=== PATIENT | male | born 1945 | race Caucasian/White ===

== ENCOUNTER 2020-08-25 11:06 | Inpatient (IN) | payer OTHER ==
--- NOTE | 2020-08-25 11:35 | EDM.PDOC ---
ED HPI GENERAL MEDICAL PROBLEM - General Chief Complaint: Respiratory Problem Stated Complaint: CALL IN. Time Seen by Provider: 08/25/20 11:20 Source of Information: Reports: Patient, EMS History Limitations: Reports: No Limitations - History of Present Illness INITIAL COMMENTS - FREE TEXT/NARRATIVE: This 74 yo male patient was brought to the ED by [facility] due to shortness of jimenez th. The patient reports he was diagnosed with COVID 8 days ago and has been feeling short of breath. The patient reports his called for the ambulance today due to increased concern. The patient does have a history of Parkinson's. Onset: Gradual Duration: Day(s):, Constant Location: Reports: Chest Quality: Reports: Other Severity: Moderate Improves with: Reports: None Worsens with: Reports: None Context: Reports: Other Associated Symptoms: Reports: Shortness of Breath - Related Data Allergies Allergy/AdvReac Type Severity Reaction Status Date / Time No Known Allergies Allergy Verified 08/25/20 11:21 Home Meds: Home Meds Amoxicillin 250 mg PO DAILY 08/25/20 [History] Benazepril [Lotensin] 20 mg PO BID 08/25/20 [History] Calcium Carbonate [Tums] 500 mg PO DAILY PRN 08/25/20 [History] Carbidopa/Levodopa [Carbidopa-Levo 25-250 MG ODT] 1 tab PO QID 08/25/20 [History] Carbidopa/Levodopa [Carbidopa-Levo ER 50-200] 1 tab PO QPM 08/25/20 [History] Citalopram Hydrobromide [Celexa] 10 mg PO DAILY 08/25/20 [History] Magnesium 250 mg PO DAILY 08/25/20 [History] Melatonin/Pyridoxine HCl (B6) [Melatonin 3 mg Tablet] 3 mg PO DAILY 08/25/20 [History] Multivitamin [Multivitamins] 1 each PO DAILY 08/25/20 [History] Simvastatin 20 mg PO DAILY 08/25/20 [History] amLODIPine Besylate [Amlodipine Besylate] 10 mg PO DAILY 08/25/20 [History] methylPREDNISolone [Medrol Dose Pack] 4 mg PO DAILY 08/25/20 [History] Past Medical History HEENT History: Reports: None Cardiovascular History: Reports: High Cholesterol, Hypertension Respiratory History: Reports: None Gastrointestinal History: Reports: None Genitourinary History: Reports: None Musculoskeletal History: Reports: None Neurological History: Reports: Parkinson's Psychiatric History: Reports: None Endocrine/Metabolic History: Reports: None Hematologic History: Reports: None Immunologic History: Reports: None Oncologic (Cancer) History: Reports: None Dermatologic History: Reports: None - Infectious Disease History Infectious Disease History: Reports: None - Past Surgical History Head Surgeries/Procedures: Reports: None Social & Family History - Family History Family Medical History: No Pertinent Family History - Tobacco Use Tobacco Use Status *Q: Former Tobacco User Used Tobacco, but Quit: Yes Month/Year Tobacco Last Used: 00 - Caffeine Use Caffeine Use: Reports: Coffee - Recreational Drug Use Recreational Drug Use: No ED ROS GENERAL - Review of Systems Review Of Systems: Comprehensive ROS is negative, except as noted in HPI. ED EXAM, GENERAL - Physical Exam Exam: See Below Exam Limited By: No Limitations General Appearance: Alert, WD/WN, Moderate Distress Eye Exam: Bilateral Eye: EOMI, Normal Inspection, PERRL Ears: Normal External Exam, Normal Canal, Hearing Grossly Normal, Normal TMs Nose: Normal Inspection, Normal Mucosa, No Blood Throat/Mouth: Normal Inspection, Normal Lips, Normal Teeth, Normal Gums, Normal Oropharynx, Normal Voice, No Airway Compromise Head: Atraumatic, Normocephalic Neck: Normal Inspection, Supple, Non-Tender, Full Range of Motion Respiratory/Chest: Decreased Breath Sounds (throughout) Cardiovascular: Normal Peripheral Pulses, Regular Rate, Rhythm, No Edema, No Gallop, No JVD, No Murmur, No Rub GI/Abdominal: Normal Bowel Sounds, Soft, Non-Tender, No Organomegaly, No Distention, No Abnormal Bruit, No Mass (Male) Exam: Deferred Rectal (Males) Exam: Deferred Back Exam: Normal Inspection, Full Range of Motion, NT Extremities: Normal Inspection, Normal Range of Motion, Non-Tender, Normal Capillary Refill, No Pedal Edema Neurological: Alert, Oriented, CN II-XII Intact Psychiatric: Normal Affect, Normal Mood Skin Exam: Warm, Dry, Intact, Normal Color, No Rash Lymphatic: No Adenopathy Course - Vital Signs Last Recorded V/S: Last Vital Signs Temp 36.6 C 08/25/20 10:58 Pulse 77 08/25/20 10:58 Resp 18 08/25/20 10:58 BP 121/69 08/25/20 10:58 Pulse Ox 91 L 08/25/20 10:58 - Orders/Labs/Meds Orders: Active Orders 24 hr Category Date Time Status Admission Diagnosis [ADT] Urgent ADT 08/25/20 14:09 Ordered Patient Status [ADT] Routine ADT 08/25/20 14:09 Ordered EKG Documentation Completion [RC] STAT Care 08/25/20 11:28 Active Chest w Cont [CT] Urgent Exams 08/25/20 12:19 Ordered CULTURE BLOOD [BC] Stat Lab 08/25/20 11:40 Received Labs: Laboratory Tests 08/25/20 08/25/20 08/25/20 Range/Units 11:40 11:40 11:40 WBC 3.1 L (5.0-10.0) 10^3/uL RBC 4.24 L (4.6-6.2) 10^6/uL Hgb 14.3 (14.0-18.0) g/dL Hct 40.8 (40.0-54.0) % MCV 96.2 (80-100) fL MCH 33.7 (27.0-34.0) pg MCHC 35.0 (33.0-35.0) g/dL Plt Count 127 L (150-450) 10^3/uL Neut % (Auto) 79.8 H (42.2-75.2) % Lymph % (Auto) 10.6 L (20.5-50.1) % [place] % (Auto) 9.3 H (2-8) % Eos % (Auto) 0.0 L (1.0-3.0) % Baso % (Auto) 0.3 (0.0-1.0) % D-Dimer, Quantitative 1680 H (0-400) ng/mL Sodium 136 (136-145) mmol/L Potassium 4.3 (3.5-5.1) mmol/L Chloride 102 (98-107) mmol/L Carbon Dioxide 24 (21-32) mmol/L Anion Gap 14.3 H (7-13) mEq/L BUN 19 H (7-18) mg/dL Creatinine 0.90 (0.70-1.30) mg/dL Est Cr Clr Drug Dosing 74.19 mL/min Estimated GFR (MDRD) > 60 BUN/Creatinine Ratio 21.1 (No establ ref range) Glucose 112 H (74-99) mg/dL Lactic Acid (0.4-2.0) mmol/L Calcium 8.2 L (8.5-10.1) mg/dL Total Bilirubin 0.6 (0.2-1.0) mg/dL AST 72 H (15-37) U/L ALT 40 (16-63) U/L Alkaline Phosphatase 96 (46-116) U/L Troponin I < 0.017 (0.000-0.056) ng/mL C-Reactive Protein 5.1 H (0.0-0.9) mg/dL Total Protein 6.7 (6.4-8.2) g/dL Albumin 2.8 L (3.4-5.0) g/dL Globulin 3.9 Albumin/Globulin Ratio 0.72 Urine Color (YELLOW) Urine Appearance (CLEAR) Urine pH (5.0-9.0) Ur Specific [place] (1.005-1.030) Urine Protein (NEGATIVE) Urine Glucose (UA) (NEGATIVE) Urine Ketones (NEGATIVE) Urine Occult Blood (NEGATIVE) Urine Nitrite (NEGATIVE) Urine Bilirubin (NEGATIVE) Urine Urobilinogen (0.2-1.0) mg/dL Ur Leukocyte Esterase (NEGATIVE) 08/25/20 08/25/20 Range/Units 11:40 11:50 WBC (5.0-10.0) 10^3/uL RBC (4.6-6.2) 10^6/uL Hgb (14.0-18.0) g/dL Hct (40.0-54.0) % MCV (80-100) fL MCH (27.0-34.0) pg MCHC (33.0-35.0) g/dL Plt Count (150-450) 10^3/uL Neut % (Auto) (42.2-75.2) % Lymph % (Auto) (20.5-50.1) % [place] % (Auto) (2-8) % Eos % (Auto) (1.0-3.0) % Baso % (Auto) (0.0-1.0) % D-Dimer, Quantitative (0-400) ng/mL Sodium (136-145) mmol/L Potassium (3.5-5.1) mmol/L Chloride (98-107) mmol/L Carbon Dioxide (21-32) mmol/L Anion Gap (7-13) mEq/L BUN (7-18) mg/dL Creatinine (0.70-1.30) mg/dL Est Cr Clr Drug Dosing mL/min Estimated GFR (MDRD) BUN/Creatinine Ratio (No establ ref range) Glucose (74-99) mg/dL Lactic Acid 1.3 (0.4-2.0) mmol/L Calcium (8.5-10.1) mg/dL Total Bilirubin (0.2-1.0) mg/dL AST (15-37) U/L ALT (16-63) U/L Alkaline Phosphatase (46-116) U/L Troponin I (0.000-0.056) ng/mL C-Reactive Protein (0.0-0.9) mg/dL Total Protein (6.4-8.2) g/dL Albumin (3.4-5.0) g/dL Globulin Albumin/Globulin Ratio Urine Color Yellow (YELLOW) Urine Appearance Clear (CLEAR) Urine pH 6.0 (5.0-9.0) Ur Specific [place] 1.020 (1.005-1.030) Urine Protein Negative (NEGATIVE) Urine Glucose (UA) Negative (NEGATIVE) Urine Ketones Negative (NEGATIVE) Urine Occult Blood Negative (NEGATIVE) Urine Nitrite Negative (NEGATIVE) Urine Bilirubin Negative (NEGATIVE) Urine Urobilinogen 0.2 (0.2-1.0) mg/dL Ur Leukocyte Esterase Negative (NEGATIVE) Meds: Medications Discontinued Medications Generic Name Dose Route Start Last Admin Trade Name Freq PRN Reason Stop Dose Admin Iopamidol 100 ml 08/25/20 12:19 08/25/20 12:49 Isovue-370 (76%) IVPUSH 08/25/20 12:20 70 ml ONETIME ONE Administration Departure - Departure Time of Disposition: 14:12 Disposition: Admitted As Inpatient 68 Condition: Poor Clinical Impression: COVID-19, Hypoxemia - Discharge Information *PRESCRIPTION DRUG MONITORING PROGRAM REVIEWED*: Not Applicable *COPY OF PRESCRIPTION DRUG MONITORING REPORT IN PATIENT [place]: Not Applicable Care Plan Goals: Reviewed the patient's examination, lab and CT results with Dr. Chin. Dr. Chin accepted the patient for continued evaluation and management as an inpatient at [facility]. Sepsis Event Note (ED) - Evaluation Sepsis Screening Result: No Definite Risk - Focused Exam Vital Signs: Vital Signs Temp Pulse Resp BP Pulse Ox 08/25/20 10:58 36.6 C 77 18 121/69 91 L - My Orders Last 24 Hours: My Active Orders 08/25/20 11:28 EKG Documentation Completion [RC] STAT 08/25/20 11:40 CULTURE BLOOD [BC] Stat 08/25/20 12:19 Chest w Cont [CT] Urgent 08/25/20 14:09 Admission Diagnosis [ADT] Urgent Patient Status [ADT] Routine - Assessment/Plan Last 24 Hours: My Active Orders 08/25/20 11:28 EKG Documentation Completion [RC] STAT 08/25/20 11:40 CULTURE BLOOD [BC] Stat 08/25/20 12:19 Chest w Cont [CT] Urgent 08/25/20 14:09 Admission Diagnosis [ADT] Urgent Patient Status [ADT] Routine
[2020-08-25 12:15] LABS: ANION GAP 14.3 mEq/L (7-13); CHLORIDE,CL 102 mmol/L (98-107); SODIUM,NA 136 mmol/L (136-145)
[2020-08-25] MEDS ORDERED: Iopamidol 755 Mg/ML 100 ML Bottle IVPUSH ONE (12:19)
[2020-08-25] MEDS ORDERED: Acetaminophen 325 MG Tab PO PRN (14:48)
[2020-08-25] MEDS ORDERED: Docusate Sodium 100 MG Cap PO PRN (14:48)
[2020-08-25] MEDS ORDERED: Calcium Carbonate 500 MG Tab.Chew PO PRN (14:53)
[2020-08-25] MEDS ORDERED: cefTRIAXone 1,000 MG in Sodium Chloride 0.9% 50 ML IV SCH (15:00)
[2020-08-25] MEDS: Carbidopa/Levodopa 25-250 MG Tab PO SCH ×3 (16:02→23:11)
[2020-08-25] MEDS: Sodium Chloride 0.9% 1,000 ML IV SCH (16:03)
[2020-08-25] MEDS: cefTRIAXone 1 GM in Sodium Chloride 0.9% 50 ML IV SCH (16:04)
[2020-08-25] MEDS: Dexamethasone 4 MG/ML SDV IVPUSH SCH (16:05)
[2020-08-25] MEDS: Aspirin 81 MG Tab.EC PO SCH (16:05)
[2020-08-25] MEDS: Azithromycin 500 MG in Sodium Chloride 0.9% 250 ML IV SCH (16:22)
[2020-08-25] MEDS: Sodium Chloride 0.9% 10 ML Syringe FLUSH SCH (19:13)
--- NOTE | 2020-08-25 19:16 | HP ---
CHIEF COMPLAINT: Shortness of breath. HISTORY OF PRESENT ILLNESS: The patient is a 74-year-old gentleman who was admitted to the emergency room because the patient was diagnosed with COVID 8 days ago and has been feeling short of breath and that was also accompanied by fatigue and low-grade fever. Yesterday, the patient was still not getting better and so called the clinic and he was started on Medrol Dosepak as well as Zithromax, but the patient was not getting better and the patient's saturation was dipping down to 88% with mild activity, and because of this called the ambulance, and the patient was brought into the emergency room. In the emergency room, the patient was noted to be hypoxemic, especially with mild activity. The patient had a chest x-ray and this showed COVID pneumonia. Because of the above, the patient was then admitted for further management. PAST MEDICAL HISTORY: Remarkable for hypertension, Parkinson disease, and dyslipidemia. SOCIAL HISTORY: The patient is . Lives with his . A former smoker. No alcohol abuse. HOME MEDICATIONS: Benazepril 20 mg b.i.d., Tums daily p.r.n., carbidopa/levodopa 25/250 one tablet q.i.d. and carbidopa levodopa ER 50/200 one tablet q.p.m., Celexa 10 mg daily, magnesium 250 mg daily, melatonin, multivitamins, simvastatin 20 mg daily, and amlodipine 10 mg daily. ALLERGIES: No known drug allergies. REVIEW OF SYSTEMS: Denies any headache, chest pain, orthopnea, PND, abdominal pain, diarrhea, or any pedal edema. PHYSICAL EXAMINATION: General: The patient is alert and oriented in [id number] distress. Vital Signs: Blood pressure is 121/69, pulse of 77, respirations of 18, pulse oximeter is 91% resting on room air, but drops to 86% to 88% with mild-to- moderate activity. SHEENT: Normocephalic. There are pink palpebral conjunctivae. Sclerae anicteric. No JVD. No lymphadenopathy. Heart: Regular rate and rhythm. Normal S1 and S2. No gallops. No rubs. Lungs: Have diminished breath sounds in both bases, but no significant crackles, no wheezing. Abdomen: Soft, nontender. Bowel sounds positive. Extremities: Negative for any pedal edema. No calf tenderness. LABORATORY WORKUP: CBC: WBC 3.1, hemoglobin is 14.3, hematocrit is 40.8, platelets are 127. D-dimer is 1680. Comp panel: Calcium is 8.2, glucose is 112. The rest of the panel unremarkable. Troponin is less than 0.017. C- reactive protein is 5.1, which is elevated. CAT scan of the chest was discussed with the ER provider. Has COVID pneumonia. ADMITTING DIAGNOSES: 1. Coronavirus disease pneumonia. 2. Hypoxemia. 3. Parkinson disease. 4. Hypertension. 5. Dyslipidemia. TREATMENT PLAN: The patient is going to be admitted to acute care, COVID isolation unit. He will be empirically started on IV dexamethasone, IV antibiotics with ceftriaxone and azithromycin, and I have also discussed with the patient regarding remdesivir and he is agreeable to this, and we will also put him on DVT prophylaxis and the rest of the management as necessary. The patient is a full code as discussed with the patient. I spoke with the patient and provided information about remdesivir treatment as being under emergency use authorization and not fully FDA approved or reviewed. I discussed potential side effects including liver abnormalities and also discussed other potential treatment options that are currently not FDA approved to treat COVID-19. The patient gives permission for remdesivir. [facility] /[id number] RAFAEL
--- NOTE | 2020-08-25 20:54 | CT ---
EXAMINATION: Chest w Cont SEX: Male AGE: 74 years CLINICAL HISTORY: 74-year-old hypertensive male, short of breath. Serum D dimer 1600. Covid positive. Scan technique: Volume acquisition of data emergency CT scan of the chest obtained during the intravenous administration 70 cc nonionic Isovue 370 contrast at 5 cc/s via injector while patient was lying supine on the Siemens multislice scanner [place], [place]. All data archived in the PACS system for storage, reformatting axial/sagittal/coronal planes and study (lung/mediastinal/bone windows). Respiratory motion artifacts. No comparison chest exams immediately available. Interpretation: Abnormal. 1. Cystic lesions scattered throughout the parenchyma both lung napier (predominantly upper lobes). Smoker? 2. Patchy consolidation peripherally, posterior segment, left lower lobe suggests bronchiectasis. (aspiration?) 3. *Right midlung (perihilar) and peripheral upper lobe "groundglass" interstitial densities suggesting vasculitis and, possibly, COVID PNEUMONIA. (Differential considerations include multilobar aspiration pneumonitis). 4. Borderline cardiomegaly. No pulmonary vascular congestion, alveolar edema or dependent pleural fluid accumulation (pleural effusions). 5. Normal caliber thoracic and upper abdominal aorta. 6. No suspicious lung nodule or mass lesion. No significant hilar or mediastinal lymphadenopathy. 7. Renal cysts. Upper abdominal viscera otherwise unremarkable. CONCLUSION: CT abnormality suggesting COPD and probable pneumonia. No heart failure. No sign of lung malignancy.
[2020-08-25] MEDS ORDERED: BENAZEPRIL 40 MG PO SCH (21:00)
[2020-08-25] MEDS: amLODIPine 5 MG Tab PO SCH (21:04)
[2020-08-25] MEDS: Melatonin 3 MG Tab PO SCH (21:04)
[2020-08-25] MEDS: Sodium Chloride 0.9% 10 ML Syringe FLUSH PRN (23:15)
[2020-08-26] MEDS: Carbidopa/Levodopa 25-250 MG Tab PO SCH ×5 (06:32→22:51)
[2020-08-26 07:05] LABS: ANION GAP 15.1 mEq/L (7-13); CHLORIDE,CL 105 mmol/L (98-107); SODIUM,NA 139 mmol/L (136-145)
[2020-08-26] MEDS: Sodium Chloride 0.9% 1,000 ML IV SCH ×2 (08:26→22:54)
[2020-08-26] MEDS: Citalopram 20 MG Tab PO SCH (08:28)
[2020-08-26] MEDS: Enoxaparin 40 MG/0.4 ML Syringe SUBCUT SCH (08:29)
[2020-08-26] MEDS: Dexamethasone 4 MG/ML SDV IVPUSH SCH (08:29)
[2020-08-26] MEDS: Multivitamins,Therapeutic Tab PO SCH (08:30)
[2020-08-26] MEDS ORDERED: BENAZEPRIL 20 MG PO SCH ×2 (09:00)
--- NOTE | 2020-08-26 09:27 | PN ---
DATE: 08/26/2020 SUBJECTIVE: The patient is a 74-year-old gentleman who was admitted with hypoxemia and COVID pneumonia and the patient had a good night's sleep, and this morning the patient is feeling slightly better. Denies any worsening of shortness of breath. Denies any chest pain, abdominal pain, headache, nor any other complaints. LABORATORY DATA: Lab workup this morning; CBC: WBC is 1.2, hemoglobin is 14, hematocrit is 40.5, platelets 157. Chem-6: Glucose is 131, BUN is 20. The rest of the panel unremarkable. OBJECTIVE: Vital Signs: Blood pressure is 107/64, pulse of 73, respirations 16, temperature of 97.1, saturation is 96% on 2 L per nasal cannula. Heart: Regular rate and rhythm. Normal S1 and S2. No gallops. No rubs. Lungs: Diminished breath sounds on both bases, but no significant crackles, no wheezing. Abdomen: Soft, nontender. Bowel sounds positive. Extremities: Negative for any pedal edema. No calf tenderness. PLAN: We will continue with his IV antibiotics, that is azithromycin and ceftriaxone, and continue with IV dexamethasone, and we will also continue with his remdesivir and continue with the rest of his management. We will recheck a CBC in a.m. as his WBC has dropped. [facility] /[id number]
[2020-08-26] MEDS: Sodium Chloride 0.9% 10 ML Syringe FLUSH SCH (11:43)
[2020-08-26] MEDS: cefTRIAXone 1 GM in Sodium Chloride 0.9% 50 ML IV SCH (15:20)
[2020-08-26] MEDS: BENAZEPRIL 20 MG PO SCH (15:25)
[2020-08-26] MEDS: Azithromycin 500 MG in Sodium Chloride 0.9% 250 ML IV SCH (16:31)
[2020-08-26] MEDS ORDERED: Zolpidem 5 MG Tab PO PRN (21:00)
[2020-08-26] MEDS ORDERED: Melatonin 3 MG Tab PO SCH (21:00)
[2020-08-26] MEDS: amLODIPine 5 MG Tab PO SCH (21:09)
[2020-08-26] MEDS: Melatonin 3 MG Tab PO SCH (21:09)
[2020-08-27] MEDS: Carbidopa/Levodopa 25-250 MG Tab PO SCH ×5 (06:34→22:36)
[2020-08-27] MEDS: BENAZEPRIL 20 MG PO SCH (08:23)
[2020-08-27] MEDS: Citalopram 20 MG Tab PO SCH (08:23)
[2020-08-27] MEDS: Dexamethasone 4 MG/ML SDV IVPUSH SCH (08:24)
[2020-08-27] MEDS: Enoxaparin 40 MG/0.4 ML Syringe SUBCUT SCH (08:24)
[2020-08-27] MEDS: Multivitamins,Therapeutic Tab PO SCH (08:24)
--- NOTE | 2020-08-27 10:17 | PN ---
DATE: 08/27/2020 SUBJECTIVE: The patient this morning is doing fairly well and shortness of breath is improving, and appetite has been good. Oxygen saturation this morning is 97% on 2 L per nasal cannula. The patient denies any chest pain. Denies any worsening of shortness of breath, headache, abdominal pain, nor any other complaints. LABORATORY DATA: Lab workup this morning; CBC: WBC is 4.3 (improvement from 1.3 yesterday), hemoglobin is 13.8, hematocrit is 39.7, platelets 198. Liver function tests remarkable for AST of 67. OBJECTIVE: Vital Signs: Blood pressure is 115/65, pulse 79, respirations of 20, temperature of 97.8, and saturation is 97% on 2 L per nasal cannula. Heart: Regular rate and rhythm. Normal S1 and S2. No gallops. No rubs. Lungs: Have diminished breath sounds on both bases, but no crackles, no wheezing. Abdomen: Soft, nontender, bowel sounds positive. Extremities: Negative for any pedal edema. No calf tenderness. MEDICATIONS: Reviewed. PLAN: We will continue with his present management and continue with IV antibiotics that is ceftriaxone and azithromycin and continue with IV dexamethasone and remdesivir. We will also try to wean him off oxygen. [facility] /[id number]
[2020-08-27] MEDS: Sodium Chloride 0.9% 10 ML Syringe FLUSH SCH (12:26)
[2020-08-27] MEDS: Aspirin 81 MG Tab.EC PO SCH (15:22)
[2020-08-27] MEDS: cefTRIAXone 1 GM in Sodium Chloride 0.9% 50 ML IV SCH (15:24)
[2020-08-27] MEDS: Azithromycin 500 MG in Sodium Chloride 0.9% 250 ML IV SCH (16:02)
[2020-08-27] MEDS ORDERED: Sodium Chloride 0.9% 10 ML Syringe FLUSH SCH (18:00)
[2020-08-27] MEDS: Melatonin 3 MG Tab PO SCH (22:31)
[2020-08-27] MEDS: amLODIPine 5 MG Tab PO SCH (22:35)
[2020-08-27] MEDS: Sodium Chloride 0.9% 10 ML Syringe FLUSH PRN ×2 (22:41→22:42)
[2020-08-28] MEDS: Carbidopa/Levodopa 25-250 MG Tab PO SCH (07:21)
--- NOTE | 2020-08-28 09:40 | PN ---
DATE: 08/28/2020 The patient is a 74-year-old gentleman who was admitted with COVID pneumonia and hypoxemia and COPD exacerbation. SUBJECTIVE: The patient continues to do well and is feeling much better and he is already off oxygen and saturation is above 90%. The patient denies any chest pain, fever, chills, abdominal pain, or any shortness of breath. OBJECTIVE: Vital Signs: Blood pressure is 108/66, pulse of 76, respirations 18, temperature of 98.3, saturation is 95% on room air. Heart: Regular rate and rhythm. Normal S1 and S2. No gallops. No rubs. Lungs: Equal bilaterally. No crackles. No wheezing. Abdomen: Soft, nontender. Bowel sounds positive. Extremities: Negative for any pedal edema. No calf tenderness. PLAN: We will discharge the patient home today. [facility] /[id number]
[2020-08-28] MEDS: Citalopram 20 MG Tab PO SCH (10:04)
[2020-08-28] MEDS: Dexamethasone 4 MG/ML SDV IVPUSH SCH (10:07)
[2020-08-28] MEDS: Multivitamins,Therapeutic Tab PO SCH (10:07)
[2020-08-28] MEDS: Enoxaparin 40 MG/0.4 ML Syringe SUBCUT SCH (10:08)
[2020-08-28] MEDS: BENAZEPRIL 20 MG PO SCH (10:09)
--- NOTE | 2020-08-28 10:13 | DISCH ---
FINAL DIAGNOSES: 1. COVID-19 pneumonia. 2. Hypoxemia. 3. Parkinson disease. 4. Hypertension. 5. Dyslipidemia. 6. Chronic obstructive pulmonary disease. BRIEF HISTORY OF PRESENT ILLNESS: The patient is a 74-year-old gentleman who was admitted because of COVID pneumonia and hypoxemia. PERTINENT LAB, X-RAY, AND OTHER TESTS: CAT scan of the chest on 08/25/[address] abnormalities suggesting COPD and probable pneumonia. There was no heart failure or no signs of malignancy. CBC on 08/25/2020, WBC is 3.1, hemoglobin is 14.3, hematocrit is 40.8, platelet is 127. D-dimer is 1680. Comp panel: Anion gap is 14.3, BUN is 19, glucose is 112, calcium is 8.2, AST is 72. The rest of the panel unremarkable. C-reactive protein is 5.1. Lab workup on 08/27/2020, WBC is 4.3, hemoglobin is 13.8, hematocrit is 39.7. AST is 67, total protein of 6.2, albumin is 2.6. HOSPITAL COURSE: The patient was admitted to [facility]. He was empirically started on IV antibiotics with azithromycin IV as well as ceftriaxone. He was also started on dexamethasone IV as well as remdesivir. The patient slowly improved. Hospital course was complicated by a dip on his WBC to 1.2 on 08/26/2020, but this was repeated on 08/27/2020, and it went back up to 4.3. Hospital course was uncomplicated and the patient's saturations slowly improved and he was able to be weaned off from oxygen. The patient was subsequently discharged. CONDITION ON DISCHARGE: Improved. DISCHARGE INSTRUCTIONS: He is going to follow up with me in 7 to 10 days at the clinic for recheck. He will be continued on dexamethasone for the next 5 days as well as azithromycin. He also would be resumed on his home medication. [facility] /[id number]
== END 2020-08-28 10:40 | disposition home or self-care (01) | DRG 177 ==
LOC: DL.ED 11:06 → DL.MS 14:09 → DL.ED 14:20
PROVIDERS: ADMIT Internal Medicine; ATTEND Internal Medicine
PROC: 8E0ZXY6 Isolation (ICD-10-PCS; principal; 2020-08-25)
PROC: XW033E5 Introduction of Remdesivir Anti-infective into Peripheral Vein, Percutaneous Approach, New Technology Group 5 (ICD-10-PCS; 2020-08-25)
DX: U07.1 COVID-19 (principal); J12.89 Other viral pneumonia; J44.0 Chronic obstructive pulmonary disease with (acute) lower respiratory infection; J44.1 Chronic obstructive pulmonary disease with (acute) exacerbation; I10 Essential (primary) hypertension; G20 Parkinson's disease; R09.02 Hypoxemia; E78.5 Hyperlipidemia, unspecified; E78.00 Pure hypercholesterolemia, unspecified; Z87.891 Personal history of nicotine dependence; Z79.899 Other long term (current) drug therapy; Z79.52 Long term (current) use of systemic steroids
CPT/HCPCS: 36415; 71260; 80048; 80053; 80076; 81003; 83605; 84145; 84484; 85025; 85379; 86140; 87040; 93005; 99284; 99285-25; A9270-GY; J0456; J0696; J1100; J1650; J7030; J7050; Q9967

== ENCOUNTER 2025-03-11 15:37 | Emergency (ER) | payer BC, MEDICARE, OTHER ==
[2025-03-11 16:31] LABS: BASOPHILS PERCENT AUTO 0.5 % (0.0-1.0); EOSINOPHILS PERCENT AUTO 0.5 % (1.0-3.0); HEMATOCRIT 43.6 % (40.0-54.0); MEAN CORPUSCULAR HEMOGLOBIN 34.1 pg (27.0-34.0); MEAN CORPUSCULAR HGB CONC 34.4 g/dL (33.0-35.0); MEAN CORPUSCULAR VOLUME 99.1 fL (80-100); MONOCYTES PERCENT AUTO 8.8 % (2-8); NEUTROPHILS PERCENT AUTO 71.2 % (42.2-75.2); PLATELET COUNT,PLT 172 10^3/uL (150-450)
[2025-03-11 16:53] LABS: A/G RATIO 1.2; ALANINE AMINOTRANSFERASE,ALT 13 U/L (16-63); ALBUMIN 3.9 g/dL (3.4-5.0); ALKALINE PHOSPHATASE 112 U/L (46-116); ANION GAP 10.6 mEq/L (7-13); ASPARTATE AMNIOTRANSFERASE,AST 14 U/L (15-37); BILIRUBIN TOTAL 0.8 mg/dL (0.2-1.0); BLOOD UREA NITROGEN,BUN 25 mg/dL (7-18); BUN/CREATININE RATIO 20.7 (No establ ref range); CARBON DIOXIDE,CO2 29 mmol/L (21-32); CHLORIDE,CL 105 mmol/L (98-107); CREATININE 1.21 mg/dL (0.70-1.30); ESTIMATED GFR 62 mL/min (>=60); GLUCOSE RANDOM 114 mg/dL (70-99); MAGNESIUM 2.5 mg/dL (1.8-2.4); POTASSIUM,K 3.6 mmol/L (3.5-5.1); PROTEIN TOTAL,TP 7.1 g/dL (6.4-8.2); SODIUM,NA 141 mmol/L (136-145)
== END 2025-03-11 17:22 | disposition home or self-care (01) ==
LOC: DL.ED 15:37
DX: R00.2 Palpitations (principal); E86.9 Volume depletion, unspecified; I10 Essential (primary) hypertension; E78.00 Pure hypercholesterolemia, unspecified; Z79.82 Long term (current) use of aspirin; Z79.899 Other long term (current) drug therapy; Z86.16 Personal history of COVID-19
CPT/HCPCS: 36415; 80053; 83735; 84484; 85025; 99284

== ENCOUNTER 2025-05-12 09:24 | Emergency (ER) | payer BC, MEDICARE, OTHER ==
[2025-05-12] MEDS ORDERED: Sodium Chloride 0.9% 10 ML Syringe FLUSH PRN (09:32)
[2025-05-12 09:44] LABS: BASOPHILS PERCENT AUTO 0.4 % (0.0-1.0); EOSINOPHILS PERCENT AUTO 0.7 % (1.0-3.0); LYMPHOCYTES PERCENT AUTO 13.5 % (20.5-50.1); MONOCYTES PERCENT AUTO 5.0 % (2-8); NEUTROPHILS PERCENT AUTO 80.4 % (42.2-75.2); PLATELET COUNT,PLT 183 10^3/uL (150-450); RED BLOOD CELL COUNT 4.55 10^6/uL (4.6-6.2); WHITE BLOOD CELL COUNT,WBC 7.0 10^3/uL (5.0-10.0)
[2025-05-12 10:02] LABS: A/G RATIO 1.4; ALANINE AMINOTRANSFERASE,ALT 8 U/L (16-63); ASPARTATE AMNIOTRANSFERASE,AST 21 U/L (15-37); BILIRUBIN TOTAL 1.5 mg/dL (0.2-1.0); BLOOD UREA NITROGEN,BUN 26 mg/dL (7-18); CARBON DIOXIDE,CO2 30 mmol/L (21-32); CHLORIDE,CL 104 mmol/L (98-107); CREATININE 0.92 mg/dL (0.70-1.30); GLUCOSE RANDOM 109 mg/dL (70-99); POTASSIUM,K 4.3 mmol/L (3.5-5.1); PROTEIN TOTAL,TP 7.1 g/dL (6.4-8.2); SODIUM,NA 141 mmol/L (136-145)
[2025-05-12] MEDS: Diltiazem 25 MG/5 ML SDV IVPUSH ONE (10:07)
[2025-05-12 10:11] LABS: ESTIMATED GFR 86 mL/min (>=60)
[2025-05-12 10:29] LABS: INR 1.0 (0.9-1.2); PTT,PARTIAL THROMBOPLSTIN TIME 24.3 SEC (22.0-34.0)
== END 2025-05-12 11:55 ==
LOC: DL.ED 09:24
DX: S00.83XA Contusion of other part of head, initial encounter (principal); I48.91 Unspecified atrial fibrillation; R55 Syncope and collapse; I10 Essential (primary) hypertension; E78.00 Pure hypercholesterolemia, unspecified; Z79.01 Long term (current) use of anticoagulants; Z79.82 Long term (current) use of aspirin; Z79.899 Other long term (current) drug therapy; Z86.16 Personal history of COVID-19; W01.198A Fall on same level from slipping, tripping and stumbling with subsequent striking against other object, initial encounter; Y93.89 Activity, other specified
CPT/HCPCS: 36415; 70450; 73552; 80053; 83735; 85025; 85610; 85730; 93005; 93010; 96374; 99285; J3490

== ENCOUNTER 2025-06-14 11:59 | Emergency (ER) | payer OTHER, MEDICARE, BC | END 2025-06-14 13:34 | disposition home or self-care (01) | LOC: DL.ED 11:59 | DX: R45.1 Restlessness and agitation (principal); F05 Delirium due to known physiological condition; I10 Essential (primary) hypertension; E78.00 Pure hypercholesterolemia, unspecified; Z87.891 Personal history of nicotine dependence; Z79.82 Long term (current) use of aspirin; Z79.899 Other long term (current) drug therapy | CPT/HCPCS: 82947; 99284 ==

== ENCOUNTER 2025-07-12 21:38 | Emergency (ER) | payer BC, MEDICARE, OTHER ==
[2025-07-12] MEDS ORDERED: Sodium Chloride 0.9% 10 ML Syringe FLUSH PRN (21:53)
[2025-07-12 22:02] LABS: BASOPHILS PERCENT AUTO 0.3 % (0.0-1.0); EOSINOPHILS PERCENT AUTO 0.3 % (1.0-3.0); LYMPHOCYTES PERCENT AUTO 6.8 % (20.5-50.1); MONOCYTES PERCENT AUTO 7.6 % (2-8); NEUTROPHILS PERCENT AUTO 85.0 % (42.2-75.2); PLATELET COUNT,PLT 417 10^3/uL (150-450); RED BLOOD CELL COUNT 2.76 10^6/uL (4.6-6.2); WHITE BLOOD CELL COUNT,WBC 6.4 10^3/uL (5.0-10.0)
[2025-07-12] MEDS: Lactated Ringers 1,000 ML IV ONE (22:12)
[2025-07-12 22:22] LABS: INR 1.1 (0.9-1.2); PTT,PARTIAL THROMBOPLSTIN TIME 29.5 SEC (22.0-34.0)
[2025-07-12 22:23] LABS: A/G RATIO 0.63; ALANINE AMINOTRANSFERASE,ALT 8 U/L (16-63); ASPARTATE AMNIOTRANSFERASE,AST 30 U/L (15-37); BILIRUBIN TOTAL 1.1 mg/dL (0.2-1.0); BLOOD UREA NITROGEN,BUN 26 mg/dL (7-18); CARBON DIOXIDE,CO2 27 mmol/L (21-32); CHLORIDE,CL 109 mmol/L (98-107); CREATININE 0.84 mg/dL (0.70-1.30); ESTIMATED GFR 90 mL/min (>=60); GLUCOSE RANDOM 115 mg/dL (70-99); POTASSIUM,K 3.7 mmol/L (3.5-5.1); PROTEIN TOTAL,TP 5.2 g/dL (6.4-8.2); SODIUM,NA 144 mmol/L (136-145)
[2025-07-12 23:15] LABS: APPEARANCE,URINE SLIGHTLY CLOUDY (CLEAR); GLUCOSE,URINE NEGATIVE (NEGATIVE); OCCULT BLOOD,URINE LARGE (NEGATIVE)
[2025-07-12 23:44] LABS: EPITHELIAL CELLS,URINE FEW /HPF (NOT SEEN)
== END 2025-07-13 00:24 ==
LOC: DL.ED 21:38
DX: S61.411A Laceration without foreign body of right hand, initial encounter (principal); S50.11XA Contusion of right forearm, initial encounter; S70.01XA Contusion of right hip, initial encounter; S70.11XA Contusion of right thigh, initial encounter; E86.0 Dehydration; I10 Essential (primary) hypertension; E78.00 Pure hypercholesterolemia, unspecified; Z79.01 Long term (current) use of anticoagulants; Z79.82 Long term (current) use of aspirin; Z79.899 Other long term (current) drug therapy; W19.XXXA Unspecified fall, initial encounter; Y92.129 Unspecified place in nursing home as the place of occurrence of the external cause
CPT/HCPCS: 36415; 70450; 72125; 80053; 81001; 85025; 85610; 85730; 93005; 96360; 99285; C1758; J7120; 93010; 99284

== ENCOUNTER 2025-07-27 17:52 | Emergency (ER) | payer MEDICARE, BC, OTHER ==
[2025-07-27 18:10] LABS: BASOPHILS PERCENT AUTO 0.2 % (0.0-1.0); EOSINOPHILS PERCENT AUTO 1.0 % (1.0-3.0); LYMPHOCYTES PERCENT AUTO 10.1 % (20.5-50.1); MONOCYTES PERCENT AUTO 6.6 % (2-8); NEUTROPHILS PERCENT AUTO 82.1 % (42.2-75.2); PLATELET COUNT,PLT 463 10^3/uL (150-450); RED BLOOD CELL COUNT 3.43 10^6/uL (4.6-6.2); WHITE BLOOD CELL COUNT,WBC 6.2 10^3/uL (5.0-10.0)
[2025-07-27 18:21] LABS: BLOOD UREA NITROGEN,BUN 29 mg/dL (7-18); CARBON DIOXIDE,CO2 31 mmol/L (21-32); CHLORIDE,CL 105 mmol/L (98-107); CREATININE 0.95 mg/dL (0.70-1.30); GLUCOSE RANDOM 112 mg/dL (70-99); POTASSIUM,K 4.6 mmol/L (3.5-5.1); SODIUM,NA 143 mmol/L (136-145)
[2025-07-27 18:25] LABS: ESTIMATED GFR 82 mL/min (>=60)
[2025-07-27] MEDS ORDERED: Lidocaine 1% with EPINEPHrine 1:100,000 20 ML MDV INJECT ONE (18:28)
== END 2025-07-27 19:51 | disposition home or self-care (01) ==
LOC: DL.ED 17:52
DX: S01.112A Laceration without foreign body of left eyelid and periocular area, initial encounter (principal); S09.90XA Unspecified injury of head, initial encounter; I10 Essential (primary) hypertension; E78.00 Pure hypercholesterolemia, unspecified; Z79.899 Other long term (current) drug therapy; Z79.82 Long term (current) use of aspirin; W01.198A Fall on same level from slipping, tripping and stumbling with subsequent striking against other object, initial encounter; Y92.129 Unspecified place in nursing home as the place of occurrence of the external cause
CPT/HCPCS: 12011; 36415; 70450; 72125; 80048; 83735; 85025; 99282; 99283

== ENCOUNTER 2025-08-08 10:22 | Emergency (ER) | payer MEDICARE, BC, OTHER ==
[2025-08-08] MEDS ORDERED: Sodium Chloride 0.9% 10 ML Syringe FLUSH PRN (10:58)
[2025-08-08 11:06] LABS: BASOPHILS PERCENT AUTO 0.3 % (0.0-1.0); EOSINOPHILS PERCENT AUTO 0.3 % (1.0-3.0); LYMPHOCYTES PERCENT AUTO 5.6 % (20.5-50.1); MONOCYTES PERCENT AUTO 5.9 % (2-8); NEUTROPHILS PERCENT AUTO 87.9 % (42.2-75.2); PLATELET COUNT,PLT 243 10^3/uL (150-450); RED BLOOD CELL COUNT 3.22 10^6/uL (4.6-6.2); WHITE BLOOD CELL COUNT,WBC 6.1 10^3/uL (5.0-10.0)
[2025-08-08 11:08] LABS: APPEARANCE,URINE CLEAR (CLEAR); GLUCOSE,URINE NEGATIVE (NEGATIVE); OCCULT BLOOD,URINE NEGATIVE (NEGATIVE)
[2025-08-08 11:23] LABS: B-TYPE NATRIURETIC PEPTIDE,BNP 419.0 pg/ml (0-100)
[2025-08-08 11:25] LABS: ALANINE AMINOTRANSFERASE,ALT 12.0 U/L (16-63); ASPARTATE AMNIOTRANSFERASE,AST 28.0 U/L (15-37); BILIRUBIN TOTAL 0.9 mg/dL (0.2-1.0); BLOOD UREA NITROGEN,BUN 36.0 mg/dL (7-18); CARBON DIOXIDE,CO2 29.0 mmol/L (21-32); CHLORIDE,CL 102.0 mmol/L (98-107); CREATININE 0.78 mg/dL (0.70-1.30); EST CRCL DRUG DOSING (CG) 75.31 mL/min; GLUCOSE RANDOM 104.0 mg/dL (70-99); POTASSIUM,K 4.0 mmol/L (3.5-5.1); PROTEIN TOTAL,TP 6.2 g/dL (6.4-8.2); SODIUM,NA 136.0 mmol/L (136-145)
[2025-08-08 11:26] LABS: A/G RATIO 0.44; ESTIMATED GFR 92.0 mL/min (>=60)
[2025-08-08 11:28] LABS: EPITHELIAL CELLS,URINE FEW /HPF (NOT SEEN)
[2025-08-08 11:28] LABS: LACTIC ACID 1.7 mmol/L (0.4-2.0)
== END 2025-08-08 13:15 ==
LOC: DL.ED 10:22
DX: S72.002A Fracture of unspecified part of neck of left femur, initial encounter for closed fracture (principal); I10 Essential (primary) hypertension; E78.00 Pure hypercholesterolemia, unspecified; I48.91 Unspecified atrial fibrillation; Z79.899 Other long term (current) drug therapy; Z79.01 Long term (current) use of anticoagulants; Z88.8 Allergy status to other drugs, medicaments and biological substances; W19.XXXA Unspecified fall, initial encounter
CPT/HCPCS: 36415; 70450; 71046; 80053; 81001; 83605; 83735; 83880; 84484; 85025; 93005; 99285; A9270

== ENCOUNTER 2025-08-12 11:46 | Emergency (ER) | payer MEDICARE, BC ==
[2025-08-12] MEDS: Iopamidol 755 Mg/ML 100 ML Bottle IVPUSH ONE (11:46)
[2025-08-12] MEDS ORDERED: Sodium Chloride 0.9% 10 ML Syringe FLUSH PRN (11:47)
[2025-08-12 12:13] LABS: BASOPHILS PERCENT AUTO 0.4 % (0.0-1.0); EOSINOPHILS PERCENT AUTO 1.1 % (1.0-3.0); LYMPHOCYTES PERCENT AUTO 7.0 % (20.5-50.1); MONOCYTES PERCENT AUTO 9.1 % (2-8); NEUTROPHILS PERCENT AUTO 82.4 % (42.2-75.2); O2 DELIVERY DEVICE NASAL CANNULA; PLATELET COUNT,PLT 285 10^3/uL (150-450); RED BLOOD CELL COUNT 2.89 10^6/uL (4.6-6.2); WHITE BLOOD CELL COUNT,WBC 5.3 10^3/uL (5.0-10.0)
[2025-08-12] MEDS ORDERED: Etomidate 2 MG/ML 20 ML SDV IVPUSH ONE (12:30)
[2025-08-12] MEDS ORDERED: Succinylcholine 200 MG/10 ML MDV IVPUSH ONE (12:30)
[2025-08-12 12:31] LABS: BASE EXCESS VENOUS 2.8 mmol/l ((-2)-(+3)); BICARBONATE,VENOUS 27 mmol/l (19-25); O2 SATURATION VENOUS 71.4 % (60-80); PCO2 VENOUS 44 mmHg (41-51); PH,VENOUS 7.41 (7.31-7.41); PO2 VENOUS 42 mmHg (35-42)
[2025-08-12] MEDS ORDERED: fentaNYL 250 MCG/5 ML SDV ONE (12:35)
[2025-08-12 12:41] LABS: ASPARTATE AMNIOTRANSFERASE,AST 37 U/L (15-37); BILIRUBIN TOTAL 1.0 mg/dL (0.2-1.0); BLOOD UREA NITROGEN,BUN 21 mg/dL (7-18); CARBON DIOXIDE,CO2 28 mmol/L (21-32); CHLORIDE,CL 104 mmol/L (98-107); CREATININE 0.58 mg/dL (0.70-1.30); GLUCOSE RANDOM 106 mg/dL (70-99); POTASSIUM,K 3.7 mmol/L (3.5-5.1); PROTEIN TOTAL,TP 5.1 g/dL (6.4-8.2); SODIUM,NA 138 mmol/L (136-145)
[2025-08-12 12:42] LABS: A/G RATIO 0.42; ALANINE AMINOTRANSFERASE,ALT < 6 U/L (16-63); ESTIMATED GFR 100 mL/min (>=60)
[2025-08-12 12:47] LABS: APPEARANCE,URINE CLEAR (CLEAR); GLUCOSE,URINE NEGATIVE (NEGATIVE); OCCULT BLOOD,URINE SMALL (NEGATIVE)
[2025-08-12 12:56] LABS: INR 1.1 (0.9-1.2); PTT,PARTIAL THROMBOPLSTIN TIME 29.4 SEC (22.0-34.0)
[2025-08-12 13:01] LABS: EPITHELIAL CELLS,URINE FEW /HPF (NOT SEEN)
[2025-08-12 13:05] LABS: AMPHETAMINES,URINE NEGATIVE (NEGATIVE); BARBITURATES,URINE NEGATIVE (NEGATIVE); MDMA (ECSTASY), URINE NEGATIVE (NEGATIVE); METHAMPHETAMINES,URINE NEGATIVE (NEGATIVE); OPIATES,URINE NEGATIVE (NEGATIVE); OXYCODONE,URINE NEGATIVE (NEGATIVE); PHENCYCLIDINE,URINE NEGATIVE (NEGATIVE); TCA,URINE NEGATIVE (NEGATIVE)
[2025-08-12 13:08] LABS: BASE EXCESS VENOUS 1.4 mmol/l ((-2)-(+3)); BICARBONATE,VENOUS 27 mmol/l (19-25); O2 DELIVERY DEVICE VENTILATOR; O2 SATURATION VENOUS 58.2 % (60-80); PCO2 VENOUS 51 mmHg (41-51); PH,VENOUS 7.35 (7.31-7.41); PO2 VENOUS 37 mmHg (35-42)
== END 2025-08-12 13:20 ==
LOC: DL.ED 11:46
DX: R40.4 Transient alteration of awareness (principal); I10 Essential (primary) hypertension; E78.00 Pure hypercholesterolemia, unspecified; Z88.8 Allergy status to other drugs, medicaments and biological substances; Z79.899 Other long term (current) drug therapy
CPT/HCPCS: 31500; 36415; 51702; 70450; 70496; 70498; 71045; 80053; 80305-QW; 81001; 82803; 82947; 83605; 83735; 85025; 85610; 85730; 86140; 87040; 87086; 87088; 87186; 93005; 93010; 96365; 96375; 99285; 99291-25; J0330; J0696; J2312; Q9967